=== PATIENT | male | born 1940 | race Caucasian/White ===

== ENCOUNTER 2018-05-08 14:24 | Inpatient (IN) | payer OTHER ==
--- NOTE | 2018-05-08 14:44 | PDOC ---
Attending Attestation - Resident Resident Name: Dean Dial - ED Attending Attestation I have performed the following: I have examined & evaluated the patient, The case was reviewed & discussed with the resident, I agree w/resident's findings & plan, Exceptions are as noted - HPI HPI: 05/08/18 14:49 77 yo male with h/o htn prior tia, here today c/o vertigo. pt states he feels like he is drunk. today while walking out with his family, was noted to be falling to side. so came to ed. no cp no sob. no mod factors. no change to speech. per family pt is not compliant with his medications. - Physicial Exam PE: 05/08/18 15:58 awake alert facies symmetric no nystagmus. lungs clear bilaterally heart rrr no mrg. abd soft nt nd. ext wwp. no edema. no rash. nuero: speech clear. alert oriented x 3 . finger to nose intact. heel to chávez intact. alt hand movement intact. vf intact. CN II - XII intact. gait normal neg romberg. speech clear. pos ulkas hallpike to right. - Medical Decision Making 05/08/18 14:50 differential: cva, bppv, electrolyte abnomrality, htn emergency ich. plan labs ct head, ekg . pt will likely require admission for observation possible mri due to possible cerebellar involvement. 05/08/18 16:00 pt likely peripheral vertigo however due to h/o prior TIA, and longevity of sxs , will admit for MRI. d/w Dr. harrington for consult. NIH Stroke Scale - Initial Evaluation Level of consciousness: Alert Ask patient the month and their age: Answers both correctly Ask patient to open & close eyes; make fist and let go: Obeys both correctly Best gaze (horizontal eye movement): Normal Visual field testing: No visual field loss Facial paresis (Show teeth/raise eyebrows/close eyes tight): Normal symmetrical movement Motor Function: Left Arm: Normal Motor Function: Right Arm: Normal (extends arm 90 (or 45) degrees for 10 seconds without drift Motor Function: Left Leg: Normal (extends leg 30 degrees for 5 seconds without drift) Motor Function: Right Leg: Normal (extends leg 30 degrees for 5 seconds without drift) Limb Ataxia: No ataxia Sensory(Use pinprick test arms,legs,trunk,face/side to side): Normal Best language (Describe picture, name items, read sentences): No Aphasia Dysarthria (read several words): Normal articulation Extinction and Inattention: No abnormality - Total Score NIH Stroke Scale Score: 0
[2018-05-08] MEDS ORDERED: SODIUM CHLORIDE 1,000 ML IV SCH (14:45)
[2018-05-08] MEDS ORDERED: MECLIZINE HCL 25 MG TABLET (FP) PO ONE (14:56)
[2018-05-08 14:57] LABS: BASO % 0.7 % (0-2.0); EOS % 0.9 % (0-4.5); HEMATOCRIT 47.2 % (35.4-49); HEMOGLOBIN 15.8 GM/dL (11.7-16.9); LYMPH % 21.4 % (8-40); MCH 28.9 pg (25.7-33.7); MCHC 33.4 g/dl (32.0-35.9); MEAN CELL VOLUME 86.6 fl (80-96); MEAN PLT VOLUME 8.5 fl (7.5-11.1); MONO % 7.7 % (3.8-10.2); NEUT % 69.3 % (42.8-82.8); PLATELET COUNT 309 K/MM3 (134-434); RBC 5.45 M/mm3 (4.00-5.60); WHITE BLOOD COUNT 10.1 K/mm3 (4.0-10.0)
[2018-05-08 15:09] LABS: INR 1.01 (0.83-1.09); PROTHROMBIN TIME (PATIENT) 11.4 SEC (9.7-13.0)
[2018-05-08 15:19] LABS: ALBUMIN 3.7 g/dl (3.4-5.0); ANION GAP 11 MMOL/L (8-16); BLOOD UREA NITROGEN 31 mg/dL (7-18); CALCIUM 9.3 mg/dL (8.5-10.1); CHLORIDE 102 mmol/L (98-107); CHOLESTEROL 232 mg/dL (50-200); CO2 25 mmol/L (21-32); CREATININE 1.4 mg/dL (0.55-1.3); GLUCOSE,RANDOM 99 mg/dL (74-106); POTASSIUM 4.4 mmol/L (3.5-5.1); SGOT/AST 15 U/L (15-37); SGPT/ALT 29 U/L (13-61); SODIUM 138 mmol/L (136-145)
[2018-05-08 15:21] LABS: ALK PHOS 88 U/L (45-117); BILIRUBIN,TOTAL 0.2 mg/dL (0.2-1.0); HDL CHOLESTEROL 45 mg/dL (40-60); TOT PROT 7.3 g/dl (6.4-8.2); TRIGLYCERIDES 227 mg/dL (0-150)
--- NOTE | 2018-05-08 15:54 | PDOC ---
History of Present Illness - General Chief Complaint: CVA/TIA Stated Complaint: CVT/TIA Time Seen by Provider: 05/08/18 14:38 History Source: Patient, Family Exam Limitations: Language Barrier - History of Present Illness Initial Comments: 05/08/18 15:46 Patient is a 77M with history of TIAx2, HTN, HLD, craniotomy s/p trauma in distant past here today complaining of dizziness for the past three days. Patient reports "feeling drunk in the head" since Friday and falling over to the left side. Patient's family reports catching the patient and became concerned. No facial droop, limb weakness, or slurring was observed. Family endorses poor compliance with medication. Denies fevers, chills, nausea, vomiting. Denies rhinorrhea, ear pain. Denies chest pain and shortness of breath. Denies abdominal pain and dysuria. Symptoms are worsened with movement. Past History - Past Medical History Allergies/Adverse Reactions: Allergies Allergy/AdvReac Type Severity Reaction Status Date / Time No Known Allergies Allergy Verified 05/08/18 14:35 Home Medications: Ambulatory Orders Amlodipine Besylate [Norvasc -] 10 mg PO DAILY 05/08/18 Aspirin/Dipyridamole [Aggrenox -] 1 combo PO BID 05/08/18 Hydralazine HCl 25 mg PO BID 05/08/18 Hydrochlorothiazide [Hctz -] 12.5 mg PO DAILY 05/08/18 Metoprolol Tartrate 37.5 mg PO BID 05/08/18 Valsartan 320 mg PO DAILY 05/08/18 - Suicide/Smoking/Psychosocial Hx Smoking History: Never smoked Review of Systems - Review of Systems Able to Perform ROS?: Yes Comments:: 05/08/18 15:54 GENERAL/CONSTITUTIONAL: No fever or chills. No weakness. HEAD, EYES, EARS, NOSE AND THROAT: No change in vision. No ear pain or discharge. No sore throat. CARDIOVASCULAR: No chest pain or shortness of breath RESPIRATORY: No cough, wheezing, or hemoptysis. GASTROINTESTINAL: No nausea, vomiting, diarrhea or constipation. GENITOURINARY: No dysuria, frequency, or change in urination. MUSCULOSKELETAL: No joint or muscle swelling or pain. No neck or back pain. SKIN: No rash NEUROLOGIC: No headache, +vertigo, no loss of consciousness ENDOCRINE: No increased thirst. No abnormal weight change HEMATOLOGIC/LYMPHATIC: No anemia, easy bleeding, or history of blood clots. ALLERGIC/IMMUNOLOGIC: No hives or skin allergy. *Physical Exam - Vital Signs Last Vital Signs Temp Pulse Resp BP Pulse Ox 97.7 F 71 18 185/92 100 05/08/18 14:25 05/08/18 14:25 05/08/18 14:25 05/08/18 14:25 05/08/18 14:25 - Physical Exam Comments: 05/08/18 15:54 GENERAL: Awake, alert, and fully oriented, in no acute distress HEAD: No signs of trauma, normocephalic, atraumatic EYES: PERRLA, EOMI, sclera anicteric, conjunctiva clear ENT: Auricles normal inspection, hearing grossly normal, nares patent, oropharynx clear without exudates. Moist mucosa NECK: Normal ROM, supple, no lymphadenopathy, JVD, or masses LUNGS: No distress, speaks full sentences, clear to auscultation bilaterally HEART: Regular rate and rhythm, normal S1 and S2, no murmurs, rubs or gallops, peripheral pulses normal and equal bilaterally. ABDOMEN: Soft, nontender, normoactive bowel sounds. No guarding, no rebound. No masses EXTREMITIES: Normal inspection, Normal range of motion, no edema. No clubbing or cyanosis. NEUROLOGICAL: Cranial nerves II through XII grossly intact. Normal speech, no focal sensorimotor deficits, normal cerebellar function SKIN: Warm, Dry, normal turgor, no rashes or lesions noted. NIH Stroke Scale - Last Known Well Date/Time & Onset Date Last Known Well: 05/05/18 Time Last Known Well: 09:00 - Initial Evaluation Level of consciousness: Alert Ask patient the month and their age: Answers both correctly Ask patient to open & close eyes; make fist and let go: Obeys both correctly Best gaze (horizontal eye movement): Normal Visual field testing: No visual field loss Facial paresis (Show teeth/raise eyebrows/close eyes tight): Normal symmetrical movement Motor Function: Left Arm: Normal Motor Function: Right Arm: Normal (extends arm 90 (or 45) degrees for 10 seconds without drift Motor Function: Left Leg: Normal (extends leg 30 degrees for 5 seconds without drift) Motor Function: Right Leg: Normal (extends leg 30 degrees for 5 seconds without drift) Limb Ataxia: No ataxia Sensory(Use pinprick test arms,legs,trunk,face/side to side): Normal Best language (Describe picture, name items, read sentences): No Aphasia Dysarthria (read several words): Normal articulation Extinction and Inattention: No abnormality - Total Score NIH Stroke Scale Score: 0 Critical Care Time/MDM Note - Medical Decision Making Note: 05/08/18 15:56 Patient is 77M with history of craniotomy, HTN, HLD here today complaining of vertigo. Vital signs normal and stable. Code booth called due to last known well initially being just prior to ED visit, further history gained showed last know well [address] head performed, shows s/p r inferior parietal craniotomy with hypoattenuation in the right fronto parietal lobe with no significant associated volume loss. Suggests f/u ct scan or MRI. EKG shows normal sinus rhythm with left axis deviation. T wave inversions in lateral leads. No st elevations/depressions. Normal intervals. Prior EKG in shows no t wave inversions in lateral leads. 05/08/18 18:49 CBC normal. CMP reassuring. UA clear. Dr Andino contacted, suggests ordering MRI w/o contrast. Ordered, admitted for possible stroke. Discharge Disposition - Referrals - Patient Instructions - Post Discharge Activity
[2018-05-08] MEDS ORDERED: MECLIZINE HCL 25 MG TABLET (FP) ONE (16:31)
[2018-05-08 17:09] LABS: URINE APPEARANCE CLEAR; URINE BILIRUBIN NEGATIVE (<2.0 mg/dL); URINE COLOR STRAW; URINE GLUCOSE (UA) NEGATIVE (NEGATIVE); URINE KETONE NEGATIVE (NEGATIVE); URINE LEUK ESTERASE NEGATIVE (NEGATIVE); URINE NITRITE NEGATIVE (NEGATIVE); URINE PROTEIN NEGATIVE (NEGATIVE); URINE UROBILINOGEN NEGATIVE mg/dL (0.2-1.0)
[2018-05-08] MEDS ORDERED: amLODIPine BESYLATE 5 MG TABLET (FP) ONE (18:28)
[2018-05-08] MEDS ORDERED: amLODIPine BESYLATE 5 MG TABLET (FP) PO STA (18:29)
--- NOTE | 2018-05-08 18:37 | HP ---
Admitting History and Physical - Primary Care Physician PCP: Tha Joe (for Dr Montes) - Admission Chief Complaint: unable to walk History of Present Illness: poorly compliant Hypertensive 77 Y-O M with past history of TIAx2, lipidemia who was brought in for unsteady gait, confusion, listlessness. He began feeling ill approx 3 days ago when he developed a generalized headache confusion that he compared to a "drunken state"; howver, on this day, he noted that his gait was impaired in that he could not walk straight and staggering making him umbalanced falling or tilting to his left side. Patient's family reports catching the patient when upright to prevent a fall and became concerned. Slurring was observed. Denies fevers, chills, nausea, vomiting. Denies rhinorrhea, ear pain. Denies chest pain and shortness of breath. Denies abdominal pain and dysuria. His last CVA was approx 10 yrs ago with just tingling of his RUE. 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) Cardiovascular: Yes: HTN, Hyperlipdemia - Past Surgical History Past Surgical History: Yes: Craniotomy - Smoking History Smoking history: Never smoked - Alcohol/Substance Use Hx Alcohol Use: Yes (socially; red wine) Number of Drinks Daily: 1 History of Substance Use: reports: None - Social History Usual Living Arrangement: Yes: With Spouse ADL: Independent History of Recent Travel: No Home Medications - Allergies Allergies/Adverse Reactions: Allergies Allergy/AdvReac Type Severity Reaction Status Date / Time No Known Allergies Allergy Verified 05/08/18 14:35 - Home Medications Home Medications: Ambulatory Orders Amlodipine Besylate [Norvasc -] 10 mg PO DAILY 05/08/18 Aspirin/Dipyridamole [Aggrenox -] 1 combo PO BID 05/08/18 Hydrochlorothiazide [Hctz -] 12.5 mg PO DAILY 05/08/18 RX: Hydralazine HCl 25 mg PO BID 05/08/18 RX: Metoprolol Tartrate 37.5 mg PO BID 05/08/18 RX: Valsartan 320 mg PO DAILY 05/08/18 Family Disease History - Family Disease History Family Disease History: Heart Disease: Mother, Brother Review of Systems - Review of Systems Constitutional: reports: Weakness Eyes: reports: No Symptoms HENT: reports: No Symptoms Neck: reports: No Symptoms Cardiovascular: reports: No Symptoms Respiratory: reports: No Symptoms Gastrointestinal: reports: No Symptoms Genitourinary: reports: No Symptoms Musculoskeletal: reports: No Symptoms Integumentary: reports: No Symptoms Neurological: reports: Change in Speech, Confusion, Dizziness, Headache, Unsteady Gait Endocrine: reports: No Symptoms Hematology/Lymphatic: reports: No Symptoms Psychiatric: reports: Anxiety Physical Examination Vital Signs: Vital Signs Temperature 97.7 F 05/08/18 14:25 Pulse Rate 74 05/08/18 18:09 Respiratory Rate 16 05/08/18 18:09 Blood Pressure 205/96 05/08/18 18:09 O2 Sat by Pulse Oximetry (%) 96 05/08/18 18:09 Constitutional: Yes: Well Nourished, No Distress Eyes: Yes: Conjunctiva Clear, EOM Intact HENT: Yes: WNL Neck: Yes: WNL Cardiovascular: Yes: Regular Rate and Rhythm Respiratory: Yes: WNL Gastrointestinal: Yes: Normal Bowel Sounds, Soft ...Rectal Exam: Yes: Deferred (to PCP) Musculoskeletal: Yes: WNL Extremities: Yes: WNL Edema: No Peripheral Pulses: Left Doralis Pedis: 1+, Right Dorsalis Pedis: 1+ Integumentary: Yes: WNL Neurological: Yes: Alert, Oriented, Facial Droop (Lt side), Unsteady Gait ...Motor Strength: WNL Psychiatric: Yes: WNL Labs: CBC, BMP 05/08/18 14:35 05/08/18 14:35 CBCD WBC 10.1 K/mm3 (4.0-10.0) H 05/08/18 14:35 RBC 5.45 M/mm3 (4.00-5.60) 05/08/18 14:35 Hgb 15.8 GM/dL (11.7-16.9) 05/08/18 14:35 Hct 47.2 % (35.4-49) 05/08/18 14:35 MCV 86.6 fl (80-96) 05/08/18 14:35 MCHC 33.4 g/dl (32.0-35.9) 05/08/18 14:35 RDW 14.0 % (11.9-15.9) 05/08/18 14:35 Plt Count 309 K/MM3 (134-434) 05/08/18 14:35 MPV 8.5 fl (7.5-11.1) 05/08/18 14:35 CMP Sodium 138 mmol/L (136-145) 05/08/18 14:35 Potassium 4.4 mmol/L (3.5-5.1) 05/08/18 14:35 Chloride 102 mmol/L (98-107) 05/08/18 14:35 Carbon Dioxide 25 mmol/L (21-32) 05/08/18 14:35 Anion Gap 11 MMOL/L (8-16) 05/08/18 14:35 BUN 31 mg/dL (7-18) H 05/08/18 14:35 Creatinine 1.4 mg/dL (0.55-1.3) H 05/08/18 14:35 Creat Clearance w eGFR 49.27 (>60) 05/08/18 14:35 Random Glucose 99 mg/dL (74-106) 05/08/18 14:35 Calcium 9.3 mg/dL (8.5-10.1) 05/08/18 14:35 Total Bilirubin 0.2 mg/dL (0.2-1.0) 05/08/18 14:35 AST 15 U/L (15-37) 05/08/18 14:35 ALT 29 U/L (13-61) 05/08/18 14:35 Alkaline Phosphatase 88 U/L (45-117) 05/08/18 14:35 Total Protein 7.3 g/dl (6.4-8.2) 05/08/18 14:35 Albumin 3.7 g/dl (3.4-5.0) 05/08/18 14:35 CARDIAC ENZYMES Creatine Kinase 46 IU/L (26-308) 05/08/18 14:35 Troponin I < 0.02 ng/ml (0.00-0.05) 05/08/18 14:35 Imaging - Results Chest X-ray: Report Reviewed Cat Scan: Report Reviewed EKG: Report Reviewed Problem List - Problems (1) TIA (transient ischemic attack) Assessment/Plan: strongly suspected given physical findings or Lt facial droop; ataxic gait; Rt sided pareses in the face of uncontrolled Htn: PLAN: Neuro eval; MRI; BP control (avoid to fast of a drop) Code(s): G45.9 - TRANSIENT CEREBRAL ISCHEMIC ATTACK, UNSPECIFIED (2) Hypertension with renal disease Assessment/Plan: chronically poorly controlled as evidenced by his meds and history of non compliance. 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 No gross neuro deficits ensued; no Hx seizures Code(s): Z87.820 - PERSONAL HISTORY OF TRAUMATIC BRAIN INJURY (5) History of TIA (transient ischemic attack) Assessment/Plan: the last one was approx 10 yrs ago. No lasting neuro deficits. Code(s): Z86.73 - PRSNL HX OF TIA (TIA), AND CEREB INFRC W/O RESID DEFICITS Assessment/Plan 77 YO with definite stroke/TIA in face of uncontrolled HTN, who will need better control of his BP ~~~~~~~~~~~~~~~~~~~~~ DR Joe
[2018-05-08] MEDS ORDERED: NEBIVOLOL 2.5 MG TABLET (FP) PO ONE (21:00)
[2018-05-08 21:16] VITALS: BMI 26.9
[2018-05-08] MEDS: ALPRAZolam 0.25 MG TABLET PO SCH (21:59)
[2018-05-09 08:22] LABS: ANION GAP 11 MMOL/L (8-16); BLOOD UREA NITROGEN 34 mg/dL (7-18); CALCIUM 9.3 mg/dL (8.5-10.1); CHLORIDE 103 mmol/L (98-107); CO2 27 mmol/L (21-32); GLUCOSE,RANDOM 88 mg/dL (74-106); POTASSIUM 4.9 mmol/L (3.5-5.1); SODIUM 141 mmol/L (136-145)
[2018-05-09 08:34] LABS: CREATININE 1.5 mg/dL (0.55-1.3)
[2018-05-09] MEDS ORDERED: ASPIRIN/DIPYRIDAMOLE 25 MG/200 MG CAPSULE (FP) PO SCH (10:00)
[2018-05-09] MEDS: ALPRAZolam 0.25 MG TABLET PO SCH (10:19)
[2018-05-09] MEDS ORDERED: amLODIPine BESYLATE 5 MG TABLET (FP) PO STA ×2 (10:45→21:20)
--- NOTE | 2018-05-09 11:55 | CONSULT ---
Consult - text type - Consultation Consultation Note: Neurology Chief Complaint: unable to walk History of Present Illness: 77 Y-O M with past history of TIAx2, hyperlipidemia, who was brought in for unsteady gait, confusion, listlessness. He began feeling ill approx 3 days prior to admission when he developed a generalized headache confusion that he compared to a "drunken state"; however, on day of admission, he noted that his gait was impaired in that he could not walk straight and staggering making him unbalanced falling or tilting to his left side. Patient's family reported catching the patient when upright to prevent a fall and became concerned. Slurring was observed. Denied fevers, chills, nausea, vomiting. Denied rhinorrhea, ear pain. Denied chest pain and shortness of breath. Denied abdominal pain and dysuria. His last CVA was approx 10 yrs ago with just tingling of his RUE. CT head completed in ER showed ? encephalomalacia of R inferior parietal region, could not rule out subdural. MRI brain ordered and completed overnight, awaiting official report. Patient does feel better this AM but still unsteady per family at bedside. 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) Cardiovascular: Yes: HTN, Hyperlipdemia - Past Surgical History Past Surgical History: Yes: Craniotomy - Smoking History Smoking history: Never smoked - Alcohol/Substance Use Hx Alcohol Use: Yes (socially; red wine) Number of Drinks Daily: 1 History of Substance Use: reports: None - Social History Usual Living Arrangement: Yes: With Spouse ADL: Independent History of Recent Travel: No Home Medications - Allergies Allergies/Adverse Reactions: Allergies Allergy/AdvReac Type Severity Reaction Status Date / Time No Known Allergies Allergy Verified 05/08/18 14:35 - Home Medications Home Medications: Ambulatory Orders Amlodipine Besylate [Norvasc -] 10 mg PO DAILY 05/08/18 Aspirin/Dipyridamole [Aggrenox -] 1 combo PO BID 05/08/18 Hydrochlorothiazide [Hctz -] 12.5 mg PO DAILY 05/08/18 RX: Hydralazine HCl 25 mg PO BID 05/08/18 RX: Metoprolol Tartrate 37.5 mg PO BID 05/08/18 RX: Valsartan 320 mg PO DAILY 05/08/18 Family Disease History - Family Disease History Family Disease History: Heart Disease: Mother, Brother Review of Systems - Review of Systems Constitutional: reports: Weakness Eyes: reports: No Symptoms HENT: reports: No Symptoms Neck: reports: No Symptoms Cardiovascular: reports: No Symptoms Respiratory: reports: No Symptoms Gastrointestinal: reports: No Symptoms Genitourinary: reports: No Symptoms Musculoskeletal: reports: No Symptoms Integumentary: reports: No Symptoms Neurological: reports: Change in Speech, Confusion, Dizziness, Headache, Unsteady Gait Endocrine: reports: No Symptoms Hematology/Lymphatic: reports: No Symptoms Psychiatric: reports: Anxiety Physical Examination Vital Signs: Vital Signs Period Temp Pulse Resp BP Sys/Bassett Pulse Ox Last 24 Hr 97.7 F-98.1 F 66-74 16-18 106-205/77-96 0-100 Constitutional: Yes: Well Nourished, No Distress Eyes: Yes: Conjunctiva Clear, EOM Intact HENT: Yes: WNL Neck: Yes: WNL Cardiovascular: Yes: Regular Rate and Rhythm Respiratory: Yes: WNL Gastrointestinal: Yes: Normal Bowel Sounds, Soft ...Rectal Exam: Yes: Deferred (to PCP) Musculoskeletal: Yes: WNL Extremities: Yes: WNL Edema: No Peripheral Pulses: Left Doralis Pedis: 1+, Right Dorsalis Pedis: 1+ Integumentary: Yes: WNL Neurological: Awake, alert, interactive, moves all extremities equally, sensory intact, gait deferred ...Motor Strength: WNL Psychiatric: Yes: WNL Labs: 05/08/18 05/08/18 05/08/18 14:35 14:35 14:35 WBC 10.1 H RBC 5.45 Hgb 15.8 Hct 47.2 MCV 86.6 MCHC 33.4 RDW 14.0 Plt Count 309 Neutrophils % 69.3 Lymphocytes % 21.4 Monocytes % 7.7 Eosinophils % 0.9 Basophils % 0.7 INR 1.01 Sodium 138 Potassium 4.4 Chloride 102 Carbon Dioxide 25 Anion Gap 11 BUN 31 H Creatinine 1.4 H Blood Type Antibody Screen 05/08/18 05/08/18 05/09/18 14:35 20:00 05:30 WBC RBC Hgb Hct MCV MCHC RDW Plt Count Neutrophils % Lymphocytes % Monocytes % Eosinophils % Basophils % INR Sodium 141 Potassium 4.9 Chloride 103 Carbon Dioxide 27 Anion Gap 11 BUN 34 H Creatinine 1.5 H Blood Type O POSITIVE O POSITIVE Antibody Screen Negative Imaging - Results Cat Scan: Report Reviewed Plan 77 Y-O M with past history of TIAx2, hyperlipidemia, who was brought in for unsteady gait, confusion, listlessness. He began feeling ill approx 3 days prior to admission when he developed a generalized headache confusion that he compared to a "drunken state"; however, on day of admission, he noted that his gait was impaired in that he could not walk straight and staggering making him unbalanced falling or tilting to his left side. Patient's family reported catching the patient when upright to prevent a fall and became concerned. Slurring was observed. Denied fevers, chills, nausea, vomiting. Denied rhinorrhea, ear pain. Denied chest pain and shortness of breath. Denied abdominal pain and dysuria. His last CVA was approx 10 yrs ago with just tingling of his RUE. CT head completed in ER showed ? encephalomalacia of R inferior parietal region, could not rule out subdural. MRI brain ordered and completed overnight, awaiting official report. Patient does feel better this AM but still unsteady per family at bedside. Continue Aggrenox BID for now, only recently started one week ago. Monitor BP, maintain normotensive range, goal < 140/90. Continue statin for hyperlipidemia. Follow up MRI brain result. PT/OT, assistive device as needed. Consider short term rehab if indicated, fall precautions.
[2018-05-09] MEDS ORDERED: amLODIPine BESYLATE 5 MG TABLET (FP) PO ONE (13:45)
--- NOTE | 2018-05-09 16:17 | PN ---
Progress Note (short form) - Note Progress Note: Current Medications Amlodipine Besylate (Norvasc -) 10 mg PO DAILY ROSIE Atenolol (Tenormin -) 25 mg PO DAILY ROSIE Dipyridamole/Aspirin (Aggrenox -) 1 combo PO BID ROSIE Mirtazapine (Remeron -) 15 mg PO HS ROSIE Rosuvastatin Calcium (Crestor -) 10 mg PO HS ROSIE Laboratory Results - last 24 hr 05/08/18 05/08/18 05/08/18 14:35 17:00 20:00 Sodium Potassium Chloride Carbon Dioxide Anion Gap BUN Creatinine Creat Clearance w eGFR Random Glucose Calcium Creatine Kinase Troponin I TSH Free T4 Urine Color Straw Urine Appearance Clear Urine pH 6.0 Ur Specific [place] 1.008 Urine Protein Negative Urine Glucose (UA) Negative Urine Ketones Negative Urine Blood Negative Urine Nitrite Negative Urine Bilirubin Negative Urine Urobilinogen Negative Ur Leukocyte Esterase Negative Blood Type O POSITIVE O POSITIVE Antibody Screen Negative 05/09/18 05/09/18 05:30 08:45 Sodium 141 Potassium 4.9 Chloride 103 Carbon Dioxide 27 Anion Gap 11 BUN 34 H Creatinine 1.5 H Creat Clearance w eGFR 45.50 Random Glucose 88 Calcium 9.3 Creatine Kinase 40 Troponin I < 0.02 TSH 4.75 H Free T4 0.97 Cancelled Urine Color Urine Appearance Urine pH Ur Specific [place] Urine Protein Urine Glucose (UA) Urine Ketones Urine Blood Urine Nitrite Urine Bilirubin Urine Urobilinogen Ur Leukocyte Esterase Blood Type Antibody Screen Vital Signs Period Temp Pulse Resp BP Sys/Bassett Pulse Ox Last 24 Hr 97.8 F-98.1 F 66-79 16-20 106-205/77-99 96-98 CC: feels better more steady on his feet; wishes to have something for sleep ````````````````````````````````````` skin--good color eyes--midline oral--no droop evident lungs--clear heart--RR 2/6 M abd--benign neuro--ambulates on his own; gait a bit ataxic; sways to his right; no gross motor deficits appreciated `````````````````````````````````````````````` Summ > TIA/CVA--await MRI report; Neuro note read; resume aggrenoxx; and resume BP control. PLAN: carotid duplex/echo to be done > Htn--with renal insuff; probably 2nd medical renal dz; PLAN; cont with BB and CCB for now > abnL EKG--lateral wall T wave inversions; Trop x 2 are WNL; without SX of CP; no other tracing available for comparison; await Echo. Will need cardio eval > lipidemia--on crestor > anxiety--yobani Rx Mirtazapine ~~~~~~~~~~~~~~~~~~~~ dr Joe Problem List - Problems (1) TIA (transient ischemic attack) Code(s): G45.9 - TRANSIENT CEREBRAL ISCHEMIC ATTACK, UNSPECIFIED (2) Hypertension with renal disease Code(s): I12.9 - HYPERTENSIVE CHRONIC KIDNEY DISEASE W STG 1-4/UNSP CHR KDNY (3) Lipid disorder Code(s): E78.9 - DISORDER OF LIPOPROTEIN METABOLISM, UNSPECIFIED (4) Hx of traumatic brain injury Code(s): Z87.820 - PERSONAL HISTORY OF TRAUMATIC BRAIN INJURY (5) History of TIA (transient ischemic attack) Code(s): Z86.73 - PRSNL HX OF TIA (TIA), AND CEREB INFRC W/O RESID DEFICITS
[2018-05-09] MEDS: ATENOLOL 25 MG TABLET (FP) PO SCH (18:01)
[2018-05-09] MEDS: ASPIRIN/DIPYRIDAMOLE 25 MG/200 MG CAPSULE (FP) PO SCH (21:39)
[2018-05-09] MEDS: ROSUVASTATIN CA 10 MG TABLET (FP) PO SCH (21:39)
[2018-05-09] MEDS: MIRTAZAPINE 15 MG TABLET (FP) PO SCH (21:39)
[2018-05-09] MEDS ORDERED: ATENOLOL 25 MG TABLET (FP) PO SCH (22:00)
[2018-05-09] MEDS ORDERED: ZOLPIDEM TARTRATE 5 MG TABLET PO ONE (22:00)
[2018-05-10 08:34] LABS: CHLORIDE 105 mmol/L (98-107); SODIUM 141 mmol/L (136-145)
[2018-05-10 08:44] LABS: ANION GAP 8 MMOL/L (8-16); BLOOD UREA NITROGEN 38 mg/dL (7-18); CALCIUM 9.3 mg/dL (8.5-10.1); CO2 28 mmol/L (21-32); CREATININE 1.4 mg/dL (0.55-1.3); GLUCOSE,RANDOM 100 mg/dL (74-106); MAGNESIUM 2.2 mg/dL (1.8-2.4)
[2018-05-10] MEDS: ASPIRIN/DIPYRIDAMOLE 25 MG/200 MG CAPSULE (FP) PO SCH ×2 (09:37→21:07)
[2018-05-10] MEDS: ATENOLOL 25 MG TABLET (FP) PO SCH (09:38)
[2018-05-10] MEDS ORDERED: amLODIPine BESYLATE 10 MG TABLET (FP) PO SCH (10:00)
[2018-05-10] MEDS ORDERED: amLODIPine BESYLATE 5 MG TABLET (FP) PO SCH (10:00)
[2018-05-10] MEDS ORDERED: NIFEdipine E.R 60 MG TABLET (UD) PO SCH (10:00)
--- NOTE | 2018-05-10 11:49 | PN ---
Progress Note (short form) - Note Progress Note: Neurology History of Present Illness: 77 Y-O M with past history of TIAx2, hyperlipidemia, who was brought in for unsteady gait, confusion, listlessness. He began feeling ill approx 3 days prior to admission when he developed a generalized headache confusion that he compared to a "drunken state"; however, on day of admission, he noted that his gait was impaired in that he could not walk straight and staggering making him unbalanced falling or tilting to his left side. Patient's family reported catching the patient when upright to prevent a fall and became concerned. Slurring was observed. Denied fevers, chills, nausea, vomiting. Denied rhinorrhea, ear pain. Denied chest pain and shortness of breath. Denied abdominal pain and dysuria. His last CVA was approx 10 yrs ago with just tingling of his RUE. CT head completed in ER showed ? encephalomalacia of R inferior parietal region, could not rule out subdural. MRI brain ordered and completed but awaiting official report. Patient does feel better, has been getting medical optimization. Active Medications Atenolol (Tenormin -) 25 mg PO DAILY [facility] Last Admin: 05/10/18 09:38 Dose: 25 mg Dipyridamole/Aspirin (Aggrenox -) 1 combo PO BID [facility] Last Admin: 05/10/18 09:37 Dose: 1 combo Mirtazapine (Remeron -) 15 mg PO [facility] Last Admin: 05/09/18 21:39 Dose: 15 mg Nifedipine (Procardia Xl -) 60 mg PO DAILY [facility] Last Admin: 05/10/18 09:38 Dose: 60 mg Rosuvastatin Calcium (Crestor -) 10 mg PO [facility] Last Admin: 05/09/18 21:39 Dose: 10 mg Physical Examination Vital Signs Period Temp Pulse Resp BP Sys/Bassett Pulse Ox Last 24 Hr 97.8 F-98.8 F 67-80 18-20 141-197/73-99 95-96 Constitutional: Yes: Well Nourished, No Distress Eyes: Yes: Conjunctiva Clear, EOM Intact HENT: Yes: WNL Neck: Yes: WNL Cardiovascular: Yes: Regular Rate and Rhythm Respiratory: Yes: WNL Gastrointestinal: Yes: Normal Bowel Sounds, Soft ...Rectal Exam: Yes: Deferred (to PCP) Musculoskeletal: Yes: WNL Extremities: Yes: WNL Edema: No Peripheral Pulses: Left Doralis Pedis: 1+, Right Dorsalis Pedis: 1+ Integumentary: Yes: WNL Neurological: Awake, alert, interactive, moves all extremities equally, sensory intact, gait deferred CBCD WBC 10.1 K/mm3 (4.0-10.0) H 05/08/18 14:35 RBC 5.45 M/mm3 (4.00-5.60) 05/08/18 14:35 Hgb 15.8 GM/dL (11.7-16.9) 05/08/18 14:35 Hct 47.2 % (35.4-49) 05/08/18 14:35 MCV 86.6 fl (80-96) 05/08/18 14:35 MCHC 33.4 g/dl (32.0-35.9) 05/08/18 14:35 RDW 14.0 % (11.9-15.9) 05/08/18 14:35 Plt Count 309 K/MM3 (134-434) 05/08/18 14:35 MPV 8.5 fl (7.5-11.1) 05/08/18 14:35 CMP Sodium 141 mmol/L (136-145) 05/10/18 05:30 Potassium 5.0 mmol/L (3.5-5.1) 05/10/18 05:30 Chloride 105 mmol/L (98-107) 05/10/18 05:30 Carbon Dioxide 28 mmol/L (21-32) 05/10/18 05:30 Anion Gap 8 MMOL/L (8-16) 05/10/18 05:30 BUN 38 mg/dL (7-18) H 05/10/18 05:30 Creatinine 1.4 mg/dL (0.55-1.3) H 05/10/18 05:30 Creat Clearance w eGFR 49.27 (>60) 05/10/18 05:30 Random Glucose 100 mg/dL (74-106) 05/10/18 05:30 Calcium 9.3 mg/dL (8.5-10.1) 05/10/18 05:30 Total Bilirubin 0.2 mg/dL (0.2-1.0) 05/08/18 14:35 AST 15 U/L (15-37) 05/08/18 14:35 ALT 29 U/L (13-61) 05/08/18 14:35 Alkaline Phosphatase 88 U/L (45-117) 05/08/18 14:35 Total Protein 7.3 g/dl (6.4-8.2) 05/08/18 14:35 Albumin 3.7 g/dl (3.4-5.0) 05/08/18 14:35 CARDIAC ENZYMES Creatine Kinase 40 IU/L (26-308) 05/09/18 05:30 Troponin I < 0.02 ng/ml (0.00-0.05) 05/09/18 05:30 Imaging - Results Cat Scan: Report Reviewed Plan 77 Y-O M with past history of TIAx2, hyperlipidemia, who was brought in for unsteady gait, confusion, listlessness. He began feeling ill approx 3 days prior to admission when he developed a generalized headache confusion that he compared to a "drunken state"; however, on day of admission, he noted that his gait was impaired in that he could not walk straight and staggering making him unbalanced falling or tilting to his left side. Patient's family reported catching the patient when upright to prevent a fall and became concerned. Slurring was observed. Denied fevers, chills, nausea, vomiting. Denied rhinorrhea, ear pain. Denied chest pain and shortness of breath. Denied abdominal pain and dysuria. His last CVA was approx 10 yrs ago with just tingling of his RUE. CT head completed in ER showed ? encephalomalacia of R inferior parietal region, could not rule out subdural. MRI brain and completed overnight, awaiting official report, discussed with nurse to have it read. Patient does feel better this AM but still unsteady per family at bedside. Continue Aggrenox BID for now, only recently started one week ago. Monitor BP, maintain normotensive range, goal < 140/90. Continue statin for hyperlipidemia. Follow up MRI brain result. PT/OT, assistive device as needed. Consider short term rehab if indicated, fall precautions.
--- NOTE | 2018-05-10 15:02 | PN ---
Progress Note (short form) - Note Progress Note: Current Medications Atenolol (Tenormin -) 25 mg PO DAILY [facility] Last Admin: 05/10/18 09:38 Dose: 25 mg Dipyridamole/Aspirin (Aggrenox -) 1 combo PO BID [facility] Last Admin: 05/10/18 09:37 Dose: 1 combo Meclizine HCl (Antivert -) 12.5 mg PO BID [facility] Mirtazapine (Remeron -) 15 mg PO HS [facility] Last Admin: 05/09/18 21:39 Dose: 15 mg Nifedipine (Procardia Xl -) 60 mg PO DAILY [facility] Last Admin: 05/10/18 09:38 Dose: 60 mg Rosuvastatin Calcium (Crestor -) 10 mg PO HS [facility] Last Admin: 05/09/18 21:39 Dose: 10 mg Laboratory Results - last 24 hr 05/10/18 05:30 Sodium 141 Potassium 5.0 Chloride 105 Carbon Dioxide 28 Anion Gap 8 BUN 38 H Creatinine 1.4 H Creat Clearance w eGFR 49.27 Random Glucose 100 Calcium 9.3 Magnesium 2.2 Vital Signs Temperature 97.8 F 05/10/18 13:55 Pulse Rate 63 05/10/18 13:55 Respiratory Rate 18 05/10/18 13:55 Blood Pressure 129/70 05/10/18 13:55 O2 Sat by Pulse Oximetry (%) 95 05/10/18 09:00 CC: walking better but still feels dizzy ? (Rotational) ````````````````````````````````````` skin--good color eyes--midline oral--no droop evident lungs--clear heart--RR 2/6 M abd--benign neuro--ambulates on his own; gait now straight; no gross motor deficits appreciated `````````````````````````````````````````````` Summ > TIA/CVA--neurologically improved; cont BP control & Agrenoxx; MRI unoffically negative; carotid Duplex with some plaque but no signif narrowing. > dizziness--described a rotational component; which was present on arrival to ER and responded to meclizine. ALESIA: low dose meclizine > Htn--BP seems to be better; PLAN; started on Nifedipine ER; and BB; Echo pending > renal insuff--will do renal US > abnL EKG--lateral wall T wave inversions; Trop x 2 are WNL; without SX of CP; no other tracing available for comparison; await Echo. Will need cardio eval > lipidemia--on crestor > anxiety-on mirtazapine ~~~~~~~~~~~~~~~~~~~~ dr Joe Problem List - Problems (1) TIA (transient ischemic attack) Code(s): G45.9 - TRANSIENT CEREBRAL ISCHEMIC ATTACK, UNSPECIFIED (2) Hypertension with renal disease Code(s): I12.9 - HYPERTENSIVE CHRONIC KIDNEY DISEASE W STG 1-4/UNSP CHR KDNY (3) Lipid disorder Code(s): E78.9 - DISORDER OF LIPOPROTEIN METABOLISM, UNSPECIFIED (4) Hx of traumatic brain injury Code(s): Z87.820 - PERSONAL HISTORY OF TRAUMATIC BRAIN INJURY (5) History of TIA (transient ischemic attack) Code(s): Z86.73 - PRSNL HX OF TIA (TIA), AND CEREB INFRC W/O RESID DEFICITS
[2018-05-10] MEDS: ROSUVASTATIN CA 10 MG TABLET (FP) PO SCH (21:07)
[2018-05-10] MEDS: MECLIZINE HCL 12.5 MG TABLET PO SCH (21:08)
[2018-05-10] MEDS: MIRTAZAPINE 15 MG TABLET (FP) PO SCH (21:08)
--- NOTE | 2018-05-10 21:38 | EKG ---
Test Reason : Blood Pressure : / mmHG Vent. Rate : 074 BPM Atrial Rate : 074 BPM P-R Int : 180 ms QRS Dur : 110 ms QT Int : 404 ms P-R-T Axes : 043 -29 226 degrees QTc Int : 448 ms NORMAL SINUS RHYTHM POSSIBLE LEFT ATRIAL ENLARGEMENT LEFT VENTRICULAR HYPERTROPHY T WAVE ABNORMALITY, CONSIDER LATERAL ISCHEMIA ABNORMAL ECG WHEN COMPARED WITH ECG OF 08-MAY-2018 14:31, PREMATURE SUPRAVENTRICULAR COMPLEXES ARE NO LONGER PRESENT Confirmed by EVETTE SANTIAGO MD ([id number]) on 05/10/2018 9:37:51 PM Referred By: Finesse DUARTE Confirmed By:EVETTE SANTIAGO MD
--- NOTE | 2018-05-10 22:00 | EKG ---
Test Reason : Blood Pressure : / mmHG Vent. Rate : 073 BPM Atrial Rate : 073 BPM P-R Int : 184 ms QRS Dur : 106 ms QT Int : 392 ms P-R-T Axes : 044 -44 129 degrees QTc Int : 431 ms SINUS RHYTHM WITH PREMATURE SUPRAVENTRICULAR COMPLEXES POSSIBLE LEFT ATRIAL ENLARGEMENT LEFT AXIS DEVIATION LEFT VENTRICULAR HYPERTROPHY T WAVE ABNORMALITY, CONSIDER LATERAL ISCHEMIA ABNORMAL ECG NO PREVIOUS ECGS AVAILABLE Confirmed by EVETTE SANTIAGO MD ([id number]) on 05/10/2018 9:59:52 PM Referred By: Confirmed By:EVETTE SANTIAGO MD
[2018-05-11 06:51] LABS: ANION GAP 10 MMOL/L (8-16); BLOOD UREA NITROGEN 39 mg/dL (7-18); CALCIUM 9.1 mg/dL (8.5-10.1); CHLORIDE 106 mmol/L (98-107); CO2 27 mmol/L (21-32); CREATININE 1.4 mg/dL (0.55-1.3); GLUCOSE,RANDOM 96 mg/dL (74-106); POTASSIUM 4.9 mmol/L (3.5-5.1); SODIUM 143 mmol/L (136-145)
[2018-05-11] MEDS: NIFEdipine E.R. 90 MG TABLET (FP) PO SCH (09:11)
[2018-05-11] MEDS: ASPIRIN/DIPYRIDAMOLE 25 MG/200 MG CAPSULE (FP) PO SCH ×2 (09:11→21:16)
[2018-05-11] MEDS: ATENOLOL 25 MG TABLET (FP) PO SCH (09:11)
[2018-05-11] MEDS: MECLIZINE HCL 12.5 MG TABLET PO SCH ×2 (09:11→21:16)
--- NOTE | 2018-05-11 09:35 | CON.CARD ---
Cardiology Consult (text) - Consultation Consultation Note: IMP: Multiple prior TIAs, prior CVA Acute dizziness/ vertigo with MRI negative for acute CVA Abnl ECG: LVH diffuse NSST changes and TWI REC: 1. Telemetry thus far is negative for arrhythmias to explain sx 2. Echo today for EF assessment 3. 3rd Cardiac enzyme 4. Optimization of BP, lipid goals. 5. MRI is negative for acute stroke, thus sx may be secondary to vertigo. Neuro following. A stress MPI would be helpful to r/o chronic underlying ischemia given the ECG but would hold off until neurological symptoms are resolved. If EF normal and enzymes negative, this can be done either prior to discharge or as outpatient w/ close f/u.
--- NOTE | 2018-05-11 09:40 | PN ---
Progress Note (short form) - Note Progress Note: Neurology History of Present Illness: 77 Y-O M with past history of TIAx2, hyperlipidemia, who was brought in for unsteady gait, confusion, listlessness. He began feeling ill approx 3 days prior to admission when he developed a generalized headache confusion that he compared to a "drunken state"; however, on day of admission, he noted that his gait was impaired in that he could not walk straight and staggering making him unbalanced falling or tilting to his left side. Patient's family reported catching the patient when upright to prevent a fall and became concerned. Slurring was observed. Denied fevers, chills, nausea, vomiting. Denied rhinorrhea, ear pain. Denied chest pain and shortness of breath. Denied abdominal pain and dysuria. His last CVA was approx 10 yrs ago with just tingling of his RUE. CT head completed in ER showed ? encephalomalacia of R inferior parietal region, could not rule out subdural. MRI brain ordered and completed but awaiting official report. Informed by nurse yesterday or prelim report being without acute changes. Discussed with nurse this AM, no family at bedside. Active Medications Atenolol (Tenormin -) 25 mg PO DAILY [facility] Last Admin: 05/11/18 09:11 Dose: 25 mg Dipyridamole/Aspirin (Aggrenox -) 1 combo PO BID [facility] Last Admin: 05/11/18 09:11 Dose: 1 combo Meclizine HCl (Antivert -) 12.5 mg PO BID [facility] Last Admin: 05/11/18 09:11 Dose: 12.5 mg Mirtazapine (Remeron -) 15 mg PO [facility] Last Admin: 05/10/18 21:08 Dose: 15 mg Nifedipine (Procardia Xl -) 90 mg PO DAILY [facility] Last Admin: 05/11/18 09:11 Dose: 90 mg Rosuvastatin Calcium (Crestor -) 10 mg PO [facility] Last Admin: 05/10/18 21:07 Dose: 10 mg Physical Examination Vital Signs Temperature 98.2 F 05/11/18 05:25 Pulse Rate 70 05/11/18 05:25 Respiratory Rate 20 05/11/18 05:25 Blood Pressure 157/75 05/11/18 05:25 O2 Sat by Pulse Oximetry (%) 96 05/10/18 20:21 Constitutional: Yes: Well Nourished, No Distress Eyes: Yes: Conjunctiva Clear, EOM Intact HENT: Yes: WNL Neck: Yes: WNL Cardiovascular: Yes: Regular Rate and Rhythm Respiratory: Yes: WNL Gastrointestinal: Yes: Normal Bowel Sounds, Soft ...Rectal Exam: Yes: Deferred (to PCP) Musculoskeletal: Yes: WNL Extremities: Yes: WNL Edema: No Peripheral Pulses: Left Doralis Pedis: 1+, Right Dorsalis Pedis: 1+ Integumentary: Yes: WNL Neurological: Awake, alert, interactive, moves all extremities equally, sensory intact, gait deferred CBCD WBC 10.1 K/mm3 (4.0-10.0) H 05/08/18 14:35 RBC 5.45 M/mm3 (4.00-5.60) 05/08/18 14:35 Hgb 15.8 GM/dL (11.7-16.9) 05/08/18 14:35 Hct 47.2 % (35.4-49) 05/08/18 14:35 MCV 86.6 fl (80-96) 05/08/18 14:35 MCHC 33.4 g/dl (32.0-35.9) 05/08/18 14:35 RDW 14.0 % (11.9-15.9) 05/08/18 14:35 Plt Count 309 K/MM3 (134-434) 05/08/18 14:35 MPV 8.5 fl (7.5-11.1) 05/08/18 14:35 CMP Sodium 143 mmol/L (136-145) 05/11/18 05:30 Potassium 4.9 mmol/L (3.5-5.1) 05/11/18 05:30 Chloride 106 mmol/L (98-107) 05/11/18 05:30 Carbon Dioxide 27 mmol/L (21-32) 05/11/18 05:30 Anion Gap 10 MMOL/L (8-16) 05/11/18 05:30 BUN 39 mg/dL (7-18) H 05/11/18 05:30 Creatinine 1.4 mg/dL (0.55-1.3) H 05/11/18 05:30 Creat Clearance w eGFR 49.27 (>60) 05/11/18 05:30 Random Glucose 96 mg/dL (74-106) 05/11/18 05:30 Calcium 9.1 mg/dL (8.5-10.1) 05/11/18 05:30 Total Bilirubin 0.2 mg/dL (0.2-1.0) 05/08/18 14:35 AST 15 U/L (15-37) 05/08/18 14:35 ALT 29 U/L (13-61) 05/08/18 14:35 Alkaline Phosphatase 88 U/L (45-117) 05/08/18 14:35 Total Protein 7.3 g/dl (6.4-8.2) 05/08/18 14:35 Albumin 3.7 g/dl (3.4-5.0) 05/08/18 14:35 CARDIAC ENZYMES Creatine Kinase 40 IU/L (26-308) 05/09/18 05:30 Troponin I < 0.02 ng/ml (0.00-0.05) 05/09/18 05:30 Imaging - Results Cat Scan: Report Reviewed Plan 77 Y-O M with past history of TIAx2, hyperlipidemia, who was brought in for unsteady gait, confusion, listlessness. He began feeling ill approx 3 days prior to admission when he developed a generalized headache confusion that he compared to a "drunken state"; however, on day of admission, he noted that his gait was impaired in that he could not walk straight and staggering making him unbalanced falling or tilting to his left side. Patient's family reported catching the patient when upright to prevent a fall and became concerned. Slurring was observed. Denied fevers, chills, nausea, vomiting. Denied rhinorrhea, ear pain. Denied chest pain and shortness of breath. Denied abdominal pain and dysuria. His last CVA was approx 10 yrs ago with just tingling of his RUE. CT head completed in ER showed ? encephalomalacia of R inferior parietal region, could not rule out subdural. MRI brain completed, awaiting official report, prelim read negative. Patient does feel better. Continue Aggrenox BID for now, only recently started one week ago. Monitor BP, maintain normotensive range, goal < 140/90. Continue statin for hyperlipidemia. PT/OT, assistive device as needed. Consider short term rehab if indicated, fall precautions. Fall precautions, DVT ppx.
--- NOTE | 2018-05-11 11:46 | PN ---
Progress Note (short form) - Note Progress Note: Current Medications Atenolol (Tenormin -) 25 mg PO DAILY [facility] Last Admin: 05/11/18 09:11 Dose: 25 mg Dipyridamole/Aspirin (Aggrenox -) 1 combo PO BID [facility] Last Admin: 05/11/18 09:11 Dose: 1 combo Meclizine HCl (Antivert -) 12.5 mg PO BID [facility] Last Admin: 05/11/18 09:11 Dose: 12.5 mg Mirtazapine (Remeron -) 15 mg PO [facility] Last Admin: 05/10/18 21:08 Dose: 15 mg Nifedipine (Procardia Xl -) 90 mg PO DAILY [facility] Last Admin: 05/11/18 09:11 Dose: 90 mg Rosuvastatin Calcium (Crestor -) 10 mg PO [facility] Last Admin: 05/10/18 21:07 Dose: 10 mg Laboratory Results - last 24 hr 05/11/18 05:30 Sodium 143 Potassium 4.9 Chloride 106 Carbon Dioxide 27 Anion Gap 10 BUN 39 H Creatinine 1.4 H Creat Clearance w eGFR 49.27 Random Glucose 96 Calcium 9.1 Vital Signs Period Temp Pulse Resp BP Sys/Bassett Pulse Ox Last 24 Hr 97.4 F-98.2 F 63-75 18-20 129-166/68-87 96-97 CC: less dizzy today ````````````````````````````````````` skin--good color eyes--midline oral--no droop evident lungs--clear heart--RR 2/6 M abd--benign neuro--ambulates on his own; gait now straight; speech clear, no gross motor deficits appreciated `````````````````````````````````````````````` Summ > TIA/CVA--neurologically improved; cont BP control & Agrenoxx; MRI negative; carotid Duplex with some plaque but no signif narrowing. > dizziness--seems to be better with low dose meclizine > Htn--BP seems to be better; PLAN; up dose of Nifedipine today; Echo pending > renal insuff--US unremarkable > abnL EKG--lateral wall T wave inversions; Trop are WNL; without SX of CP; his OP EKG showed no lateral wall T wave inversions; may need Stress testing. > lipidemia--on crestor > anxiety-on mirtazapine ~~~~~~~~~~~~~~~~~~~~ dr Joe Problem List - Problems (1) TIA (transient ischemic attack) Code(s): G45.9 - TRANSIENT CEREBRAL ISCHEMIC ATTACK, UNSPECIFIED (2) Hypertension with renal disease Code(s): I12.9 - HYPERTENSIVE CHRONIC KIDNEY DISEASE W STG 1-4/UNSP CHR KDNY (3) Lipid disorder Code(s): E78.9 - DISORDER OF LIPOPROTEIN METABOLISM, UNSPECIFIED (4) Hx of traumatic brain injury Code(s): Z87.820 - PERSONAL HISTORY OF TRAUMATIC BRAIN INJURY (5) History of TIA (transient ischemic attack) Code(s): Z86.73 - PRSNL HX OF TIA (TIA), AND CEREB INFRC W/O RESID DEFICITS
--- NOTE | 2018-05-11 12:30 | ECHO ---
Name: PAKO JOHANSEN Exam:Adult Echocardiogram Study Date: 05/11/2018 09:22 AM Age: 77 yrs Reason For Study: HIGH BP Height: 63 in Weight: 145 lb BSA: 1.7 m2 MMode/2D Measurements & Calculations IVSd: 1.3 cm Ao root diam: 2.8 cm LVIDd: 3.7 cm LA dimension: 2.7 cm LVIDs: 2.5 cm LVPWd: 1.1 cm EDV(Teich): 57.3 ml LVOT diam: 2.0 cm ESV(Teich): 23.2 ml Doppler Measurements & Calculations MV E max luis: 88.8 cm/sec Ao V2 max: 260.6 cm/sec MV A max luis: 108.7 cm/sec Ao max P.2 mmHg MV E/A: 0.82 Ao V2 mean: 169.9 cm/sec MV dec time: 0.18 sec Ao mean P.1 mmHg Ao V2 VTI: 44.2 cm CEDRIC(I,D): 0.88 cm2 CEDRIC(V,D): 1.00 cm2 LV V1 max P.8 mmHg SV(LVOT): 38.7 ml LV V1 mean P.3 mmHg LV V1 max: 83.7 cm/sec LV V1 mean: 51.6 cm/sec LV V1 VTI: 12.5 cm PI Vmax: 119.4 cm/sec Procedure A complete two-dimensional transthoracic echocardiogram was performed (2D, M-mode, Doppler and color flow Doppler). Left Ventricle The left ventricle is normal in size. There is mild concentric left ventricular hypertrophy. Left daysi tricular systolic function is normal. Ejection Fraction = 60-65%. E/A reversal consistent with but not diagnos tic of poor LV compliance. No regional wall motion abnormalities noted. Right Ventricle The right ventricle is normal size. The right ventricular systolic function is normal. Atria The left atrial size is normal. Right atrial size is normal. Mitral Valve There is mild mitral annular calcification. There is no mitral regurgitation noted. Tricuspid Valve The tricuspid valve is normal in structure and function. There is mild tricuspid regurgitation. Aortic Valve There is mild aortic valve thickening. Mild valvular aortic stenosis. The calculated aortic valve are a using the continuity equation is 1.0 cm2. Aortic mean pressure gradient= 14 mmHg. DI (dimentionless index) is 0.29. No aortic regurgitation is present. Pulmonic Valve The pulmonic valve is not well visualized. Mild pulmonic valvular regurgitation. Great Vessels The aortic root is normal size. Pericardium/Pleura There is no pericardial effusion. Interpretation Summary The left ventricle is normal in size. There is mild concentric left ventricular hypertrophy. Left ventricular systolic function is normal. No regional wall motion abnormalities noted. Ejection Fraction = 60-65%. E/A reversal consistent with but not diagnostic of poor LV compliance The right ventricular systolic function is normal. The left atrial size is normal. Right atrial size is normal. There is mild mitral annular calcification. There is mild tricuspid regurgitation. There is mild aortic valve thickening. Mild valvular aortic stenosis. The calculated aortic valve area using the continuity equation is 1.0 cm2. Aortic mean pressure gradient= 14 mmHg DI (dimentionless index) is 0.29 Mild pulmonic valvular regurgitation. There is no pericardial effusion. Perry Giron MD 05/11/2018 12:29 PM
--- NOTE | 2018-05-11 12:41 | CONS ---
DATE OF CONSULTATION: 05/11/2018 REQUESTING PHYSICIAN: Tha Joe MD REASON FOR CONSULTATION: Abnormal EKG. HISTORY: The patient is a 77-year-old male with hypertension and multiple previous TIAs who presented to the emergency room on May 08 with dizziness. The patient described the room spinning, acute dizziness. He denied chest pain, shortness of breath, palpitations, PND, orthopnea. He denies any exertional chest symptoms. He had an initial head CT scan, which was equivocal followed by a brain MRI performed on May 08. The brain MRI showed no acute stroke but findings consistent with his previous chronic infarct. He subsequently had a carotid ultrasound on May 09 showing moderate disease that was not significantly obstructed. He was seen by Neurology who is currently reviewing his MRI. I was asked to see him for an abnormal ECG, which showed normal sinus rhythm with left ventricular hypertrophy, possible left atrial enlargement, and T-wave inversions in 1, aVL as well as V4-V6, which have been unchanged between May 08 and May 09. There is no previous comparison. The patient denies history of previous myocardial infarction or coronary interventions. PAST MEDICAL HISTORY: As above and also includes hyperlipidemia. ALLERGIES: No known drug allergies. MEDICATIONS: Include atenolol 25 mg p.o. daily, Aggrenox 1 tablet b.i.d., meclizine 12.5 mg b.i.d., Remeron 15 mg nightly, nifedipine XL 90 mg p.o. daily. As an outpatient, he had been on amlodipine 10 mg p.o. daily. This was switched on this admission due to uncontrolled hypertension. He is also on rosuvastatin 10 mg p.o. daily. FAMILY HISTORY: Noncontributory. SOCIAL HISTORY: Occasional drinker of wine, social drinker. No illegal drugs or tobacco. PHYSICAL EXAMINATION: General: Comfortable in no distress. Vital Signs: Afebrile. Temperature 98.2, blood pressure 157/75, on admission 185/92, much improved, O2 saturation 96% on room air. HEENT: He is anicteric. Neck: Has 2+ carotid pulses without bruits. Heart: S1, S2 regular. No murmurs. Chest: Clear. Abdomen: Soft and nontender. Extremities: No edema. CT and MRI are as noted in the HPI. White count 10.1, hematocrit 47.2, platelets 309, INR 1.01. Sodium 143, potassium 4.9, BUN 39, creatinine 1.4. CK and troponin are negative x2 sets. TSH 4.75, LDL 172. Urinalysis was negative. Lyme screen is pending. Chest x-ray: No acute process. Echocardiogram is pending. IMPRESSION: 1. Multiple previous transient ischemic attacks, prior cerebrovascular accident. 2. Acute dizziness with vertigo. MRI negative for acute cerebrovascular accident. 3. Abnormal echocardiogram. Left ventricular hypertrophy with diffuse, nonspecific ST changes and T-wave inversions. RECOMMENDATIONS: 1. Telemetry thus far is negative for arrhythmias to explain his symptoms. 2. An echocardiogram will be obtained today for EF assessment. 3. Obtain 3rd cardiac enzymes. 4. Optimization of blood pressure and lipid goals. He has been switched from amlodipine to Procardia XL and also placed on a moderate dose of rosuvastatin for LDL control. 5. MRI is negative for acute strokes. Thus, symptoms may be secondary to vertigo. Neurology is following. 6. Nuclear stress test would be helpful to rule out chronic underlying ischemia in this patient with multiple risk factors and abnormal ECG. However, he is currently asymptomatic and would hold off until the neurological symptoms are resolved. If the ejection fraction and the enzymes are negative, this can be done either prior to discharge or as an outpatient with close follow up. We will follow. CARRILLO HUNT M.D. [id number]
[2018-05-11] MEDS: MIRTAZAPINE 15 MG TABLET (FP) PO SCH (21:16)
[2018-05-11] MEDS: ROSUVASTATIN CA 10 MG TABLET (FP) PO SCH (21:16)
[2018-05-12 06:43] LABS: ANION GAP 10 MMOL/L (8-16); BLOOD UREA NITROGEN 35 mg/dL (7-18); CHLORIDE 107 mmol/L (98-107); CO2 25 mmol/L (21-32); GLUCOSE,RANDOM 97 mg/dL (74-106); POTASSIUM 4.6 mmol/L (3.5-5.1); SODIUM 142 mmol/L (136-145)
[2018-05-12 06:51] LABS: CREATININE 1.3 mg/dL (0.55-1.3)
--- NOTE | 2018-05-12 09:06 | PN ---
Progress Note, Physician Chief Complaint: Seen and examined in no distress Denies chest pain Dizziness resolved. Echo showed mild aortic stenosis. History of Present Illness: BP trend overall improved. - Current Medication List Current Medications: Active Medications Atenolol (Tenormin -) [address] [facility] Dipyridamole/Aspirin (Aggrenox -) [address] [facility] Last Admin: 05/11/18 21:16 Dose: 1 combo Meclizine HCl (Antivert -) 12.[address] [facility] Last Admin: 05/11/18 21:16 Dose: 12.5 mg Mirtazapine (Remeron -) 15 mg PO [facility] Last Admin: 05/11/18 21:16 Dose: 15 mg Nifedipine (Procardia Xl -) [address] [facility] Last Admin: 05/11/18 09:11 Dose: 90 mg Rosuvastatin Calcium (Crestor -) 10 mg PO [facility] Last Admin: 05/11/18 21:16 Dose: 10 mg - Objective Vital Signs: Vital Signs Temperature 97.5 F L 05/12/18 08:38 Pulse Rate 71 05/12/18 08:38 Respiratory Rate 20 05/12/18 08:38 Blood Pressure 147/73 05/12/18 08:38 O2 Sat by Pulse Oximetry (%) 93 L 05/11/18 20:24 Constitutional: Yes: No Distress Cardiovascular: Yes: Regular Rate and Rhythm Respiratory: Yes: CTA Bilaterally Gastrointestinal: Yes: Soft Edema: No Neurological: Yes: Alert ...Motor Strength: WNL Labs: CBC, BMP 05/08/18 14:35 05/12/18 05:30 INR, PTT INR 1.01 (0.83-1.09) 05/08/18 14:35 Laboratory Tests 05/08/18 05/09/18 05/12/18 14:35 05:30 05:30 Sodium 142 Potassium 4.6 BUN 35 H Creatinine 1.3 Troponin I < 0.02 < 0.02 < 0.02 - ....Imaging EKG: Image Reviewed (Reviewed: NSR) Assessment/Plan IMP: Multiple prior TIAs, prior CVA Acute dizziness/ vertigo with MRI negative for acute CVA Abnl ECG: LVH diffuse NSST changes and TWI Mild aortic stenosis. REC: 1. BP trend is overall improved, would continue current Rx. 2. Await completion of stress MPI, further reccs to follow. 3. Continue Aggrenox. Continue Crestor at current dose, would avoid high dose in patients > 75. 4. Mild , yearly surveillance echo or if clinical change.
--- NOTE | 2018-05-12 09:25 | PN ---
Progress Note (short form) - Note Progress Note: Neurology History of Present Illness: 77 Y-O M with past history of TIAx2, hyperlipidemia, who was brought in for unsteady gait, confusion, listlessness. He began feeling ill approx 3 days prior to admission when he developed a generalized headache confusion that he compared to a "drunken state"; however, on day of admission, he noted that his gait was impaired in that he could not walk straight and staggering making him unbalanced falling or tilting to his left side. Patient's family reported catching the patient when upright to prevent a fall and became concerned. Slurring was observed. Denied fevers, chills, nausea, vomiting. Denied rhinorrhea, ear pain. Denied chest pain and shortness of breath. Denied abdominal pain and dysuria. His last CVA was approx 10 yrs ago with just tingling of his RUE. CT head completed in ER showed ? encephalomalacia of R inferior parietal region, could not rule out subdural. MRI brain offical report completed and without acute changes. Spoke to daughter in detail via phone yesterday and provided update. Answered all questions. Active Medications Atenolol (Tenormin -) 50 mg PO DAILY [facility] Dipyridamole/Aspirin (Aggrenox -) 1 combo PO BID [facility] Last Admin: 05/11/18 21:16 Dose: 1 combo Meclizine HCl (Antivert -) 12.5 mg PO BID [facility] Last Admin: 05/11/18 21:16 Dose: 12.5 mg Mirtazapine (Remeron -) 15 mg PO [facility] Last Admin: 05/11/18 21:16 Dose: 15 mg Nifedipine (Procardia Xl -) 90 mg PO DAILY [facility] Last Admin: 05/11/18 09:11 Dose: 90 mg Rosuvastatin Calcium (Crestor -) 10 mg PO [facility] Last Admin: 05/11/18 21:16 Dose: 10 mg Physical Examination Vital Signs Temperature 97.5 F L 05/12/18 08:38 Pulse Rate 71 05/12/18 08:38 Respiratory Rate 20 05/12/18 08:38 Blood Pressure 147/73 05/12/18 08:38 O2 Sat by Pulse Oximetry (%) 93 L 05/11/18 20:24 Constitutional: Yes: Well Nourished, No Distress Eyes: Yes: Conjunctiva Clear, EOM Intact HENT: Yes: WNL Neck: Yes: WNL Cardiovascular: Yes: Regular Rate and Rhythm Respiratory: Yes: WNL Gastrointestinal: Yes: Normal Bowel Sounds, Soft ...Rectal Exam: Yes: Deferred (to PCP) Musculoskeletal: Yes: WNL Extremities: Yes: WNL Edema: No Peripheral Pulses: Left Doralis Pedis: 1+, Right Dorsalis Pedis: 1+ Integumentary: Yes: WNL Neurological: Awake, alert, interactive, moves all extremities equally, sensory intact, gait deferred CBCD WBC 10.1 K/mm3 (4.0-10.0) H 05/08/18 14:35 RBC 5.45 M/mm3 (4.00-5.60) 05/08/18 14:35 Hgb 15.8 GM/dL (11.7-16.9) 05/08/18 14:35 Hct 47.2 % (35.4-49) 05/08/18 14:35 MCV 86.6 fl (80-96) 05/08/18 14:35 MCHC 33.4 g/dl (32.0-35.9) 05/08/18 14:35 RDW 14.0 % (11.9-15.9) 05/08/18 14:35 Plt Count 309 K/MM3 (134-434) 05/08/18 14:35 MPV 8.5 fl (7.5-11.1) 05/08/18 14:35 CMP Sodium 142 mmol/L (136-145) 05/12/18 05:30 Potassium 4.6 mmol/L (3.5-5.1) 05/12/18 05:30 Chloride 107 mmol/L (98-107) 05/12/18 05:30 Carbon Dioxide 25 mmol/L (21-32) 05/12/18 05:30 Anion Gap 10 MMOL/L (8-16) 05/12/18 05:30 BUN 35 mg/dL (7-18) H 05/12/18 05:30 Creatinine 1.3 mg/dL (0.55-1.3) 05/12/18 05:30 Creat Clearance w eGFR 53.67 (>60) 05/12/18 05:30 Random Glucose 97 mg/dL (74-106) 05/12/18 05:30 Calcium 9.0 mg/dL (8.5-10.1) 05/12/18 05:30 Total Bilirubin 0.2 mg/dL (0.2-1.0) 05/08/18 14:35 AST 15 U/L (15-37) 05/08/18 14:35 ALT 29 U/L (13-61) 05/08/18 14:35 Alkaline Phosphatase 88 U/L (45-117) 05/08/18 14:35 Total Protein 7.3 g/dl (6.4-8.2) 05/08/18 14:35 Albumin 3.7 g/dl (3.4-5.0) 05/08/18 14:35 CARDIAC ENZYMES Creatine Kinase 34 IU/L (26-308) 05/12/18 05:30 Troponin I < 0.02 ng/ml (0.00-0.05) 05/12/18 05:30 Imaging - Results Cat Scan: Report Reviewed MRI brain: Reviewed Plan 77 Y-O M with past history of TIAx2, hyperlipidemia, who was brought in for unsteady gait, confusion, listlessness. He began feeling ill approx 3 days prior to admission when he developed a generalized headache confusion that he compared to a "drunken state"; however, on day of admission, he noted that his gait was impaired in that he could not walk straight and staggering making him unbalanced falling or tilting to his left side. Patient's family reported catching the patient when upright to prevent a fall and became concerned. Slurring was observed. Denied fevers, chills, nausea, vomiting. Denied rhinorrhea, ear pain. Denied chest pain and shortness of breath. Denied abdominal pain and dysuria. His last CVA was approx 10 yrs ago with just tingling of his RUE. CT head completed in ER showed ? encephalomalacia of R inferior parietal region, could not rule out subdural. MRI brain completed, reviewed, no acute changes. Patient does feel better. Continue Aggrenox BID for now, only recently started one week ago. Monitor BP, maintain normotensive range , goal < 140/90. Continue statin for hyperlipidemia. PT/OT, assistive device as needed. Consider short term rehab if needed, fall precautions. Meclezine as needed for dizzyness. Fall precautions, DVT ppx.
[2018-05-12] MEDS: NIFEdipine E.R. 90 MG TABLET (FP) PO SCH (09:57)
[2018-05-12] MEDS: MECLIZINE HCL 12.5 MG TABLET PO SCH ×2 (09:58→21:34)
[2018-05-12] MEDS: ASPIRIN/DIPYRIDAMOLE 25 MG/200 MG CAPSULE (FP) PO SCH ×2 (09:59→21:34)
[2018-05-12] MEDS ORDERED: ATENOLOL 50 MG TABLET (FP) PO SCH (10:00)
[2018-05-12] MEDS ORDERED: REGADENOSON 0.4 MG/5 ML PRE-FILLED SYRINGE IVPUSH ONE ×2 (10:45→10:58)
--- NOTE | 2018-05-12 17:54 | PN ---
Progress Note (short form) - Note Progress Note: Current Medications Clonazepam (Klonopin -) 0.5 mg PO DAILY [facility] Dipyridamole/Aspirin (Aggrenox -) 1 combo PO BID [facility] Last Admin: 05/12/18 09:59 Dose: 1 combo Meclizine HCl (Antivert -) 12.5 mg PO BID [facility] Last Admin: 05/12/18 09:58 Dose: 12.5 mg Mirtazapine (Remeron -) 15 mg PO HS [facility] Last Admin: 05/11/18 21:16 Dose: 15 mg Nebivolol (Bystolic -) 5 mg PO DAILY [facility] Nifedipine (Procardia Xl -) 90 mg PO DAILY [facility] Last Admin: 05/12/18 09:57 Dose: 90 mg Rosuvastatin Calcium (Crestor -) 10 mg PO HS [facility] Last Admin: 05/11/18 21:16 Dose: 10 mg Laboratory Results - last 24 hr 05/12/18 05:30 Sodium 142 Potassium 4.6 Chloride 107 Carbon Dioxide 25 Anion Gap 10 BUN 35 H Creatinine 1.3 Creat Clearance w eGFR 53.67 Random Glucose 97 Calcium 9.0 Creatine Kinase 34 Troponin I < 0.02 Vital Signs Temperature 97.9 F 05/12/18 14:00 Pulse Rate 67 05/12/18 14:00 Respiratory Rate 20 05/12/18 09:00 Blood Pressure 159/76 05/12/18 14:00 O2 Sat by Pulse Oximetry (%) 96 05/12/18 09:00 CC: still does not feel "well"; denies CP ````````````````````````````````````` skin--good color eyes--midline oral--no droop evident lungs--clear heart--RR 2/6 M abd--benign neuro--ambulates on his own, no gross motor deficits appreciated `````````````````````````````````````````````` Summ > TIA/CVA--neurologically improved; cont BP control & Agrenoxx; MRI negative; carotid Duplex with some plaque but no signif narrowing. > dizziness--cause unclear; 2nd multiple factors > Htn--BP still fluctuates in PM; even with higher dose of the Atenolol; PLAN: change to Bystolic 5mg w/ the CCB. > renal insuff--US unremarkable; Bun/Cr stable > abnL EKG--lateral wall T wave inversions; Trop are WNL; without SX of CP; but stress test shows significant ischemic changes on nuclear component to co- incide with lateral wall EKG changes: PLAN: possible cardiac cath. > lipidemia--on crestor > anxiety-on mirtazapine; add Klonopin in AM ~~~~~~~~~~~~~~~~~~~~ dr Joe Problem List - Problems (1) TIA (transient ischemic attack) Code(s): G45.9 - TRANSIENT CEREBRAL ISCHEMIC ATTACK, UNSPECIFIED (2) Hypertension with renal disease Code(s): I12.9 - HYPERTENSIVE CHRONIC KIDNEY DISEASE W STG 1-4/UNSP CHR KDNY (3) Lipid disorder Code(s): E78.9 - DISORDER OF LIPOPROTEIN METABOLISM, UNSPECIFIED (4) Hx of traumatic brain injury Code(s): Z87.820 - PERSONAL HISTORY OF TRAUMATIC BRAIN INJURY (5) History of TIA (transient ischemic attack) Code(s): Z86.73 - PRSNL HX OF TIA (TIA), AND CEREB INFRC W/O RESID DEFICITS
[2018-05-12] MEDS: ROSUVASTATIN CA 10 MG TABLET (FP) PO SCH (21:34)
[2018-05-12] MEDS: MIRTAZAPINE 15 MG TABLET (FP) PO SCH (21:34)
[2018-05-13] MEDS ORDERED: clonazePAM 0.5 MG TABLET PO SCH ×2 (07:00)
[2018-05-13 07:23] LABS: CHLORIDE 108 mmol/L (98-107); POTASSIUM 4.9 mmol/L (3.5-5.1); SODIUM 142 mmol/L (136-145)
--- NOTE | 2018-05-13 08:22 | PN ---
Progress Note, Physician Chief Complaint: severe inferolateral ischemia EF 40s Discussed with PMD and with patient and daughter this AM - Current Medication List Current Medications: Active Medications Clonazepam (Klonopin -) 0.5 mg PO DAILY [facility] Last Admin: 05/13/18 06:26 Dose: 0.5 mg Dipyridamole/Aspirin (Aggrenox -) 1 combo PO BID [facility] Last Admin: 05/12/18 21:34 Dose: 1 combo Meclizine HCl (Antivert -) 12.5 mg PO BID [facility] Last Admin: 05/12/18 21:34 Dose: 12.5 mg Mirtazapine (Remeron -) 15 mg PO [facility] Last Admin: 05/12/18 21:34 Dose: 15 mg Nebivolol (Bystolic -) 5 mg PO DAILY [facility] Nifedipine (Procardia Xl -) 90 mg PO DAILY [facility] Last Admin: 05/12/18 09:57 Dose: 90 mg Rosuvastatin Calcium (Crestor -) 10 mg PO [facility] Last Admin: 05/12/18 21:34 Dose: 10 mg - Objective Vital Signs: Vital Signs Temperature 97.7 F 05/13/18 06:00 Pulse Rate 67 05/13/18 06:00 Respiratory Rate 18 05/13/18 06:00 Blood Pressure 147/72 05/13/18 06:00 O2 Sat by Pulse Oximetry (%) 97 05/12/18 21:00 Constitutional: Yes: Calm Cardiovascular: Yes: Regular Rate and Rhythm Respiratory: Yes: CTA Bilaterally Gastrointestinal: Yes: Soft Edema: No Neurological: Yes: Alert, Oriented ...Motor Strength: WNL Labs: CBC, BMP 05/08/18 14:35 INR, PTT INR 1.01 (0.83-1.09) 05/08/18 14:35 - ....Imaging EKG: Image Reviewed Assessment/Plan IMP: Multiple prior TIAs, prior CVA Acute dizziness/ possible vertigo with MRI negative for acute CVA Abnl ECG: LVH diffuse NSST changes and TWI Mild aortic stenosis. ?Dizziness secondary to coronary ischemia?- atypical presentation? Stress test with high risk findings. REC: 1. BP trend is overall improved, would continue current Rx. 2. Given high risk findings on stress test (severe ischemia, several territories , depressed LVEF) have recommended [facility] for definitive assessment of coronary anatomy. Risks/benefits/alternatives d/w patient and daughter. They have agreed to transfer for cath. 3. Continue Aggrenox. Continue Crestor at current dose, would avoid high dose in patients > 75. 4. Mild , yearly surveillance echo or if clinical change. May also need cath to explore severity of .
[2018-05-13] MEDS: NIFEdipine E.R. 90 MG TABLET (FP) PO SCH (09:01)
[2018-05-13] MEDS: ASPIRIN/DIPYRIDAMOLE 25 MG/200 MG CAPSULE (FP) PO SCH (09:01)
[2018-05-13] MEDS: MECLIZINE HCL 12.5 MG TABLET PO SCH (09:01)
[2018-05-13 09:18] LABS: BLOOD UREA NITROGEN 36 mg/dL (7-18); CREATININE 1.3 mg/dL (0.55-1.3)
--- NOTE | 2018-05-13 09:19 | PN ---
Progress Note (short form) - Note Progress Note: Neurology History of Present Illness: 77 Y-O M with past history of TIAx2, hyperlipidemia, who was brought in for unsteady gait, confusion, listlessness. He began feeling ill approx 3 days prior to admission when he developed a generalized headache confusion that he compared to a "drunken state"; however, on day of admission, he noted that his gait was impaired in that he could not walk straight and staggering making him unbalanced falling or tilting to his left side. Patient's family reported catching the patient when upright to prevent a fall and became concerned. Slurring was observed. Denied fevers, chills, nausea, vomiting. Denied rhinorrhea, ear pain. Denied chest pain and shortness of breath. Denied abdominal pain and dysuria. His last CVA was approx 10 yrs ago with just tingling of his RUE. CT head completed in ER showed ? encephalomalacia of R inferior parietal region, could not rule out subdural. MRI brain offical report completed and without acute changes. Spoke to daughter in detail at bedside today. Answered all questions., plan is for cardiac cath. Contacted by quality assurance representative and no objection to this. Active Medications Clonazepam (Klonopin -) 0.5 mg PO DAILY [facility] Last Admin: 05/13/18 06:26 Dose: 0.5 mg Dipyridamole/Aspirin (Aggrenox -) 1 combo PO BID [facility] Last Admin: 05/13/18 09:01 Dose: 1 combo Meclizine HCl (Antivert -) 12.5 mg PO BID [facility] Last Admin: 05/13/18 09:01 Dose: 12.5 mg Mirtazapine (Remeron -) 15 mg PO [facility] Last Admin: 05/12/18 21:34 Dose: 15 mg Nebivolol (Bystolic -) 5 mg PO DAILY [facility] Last Admin: 05/13/18 09:01 Dose: 5 mg Nifedipine (Procardia Xl -) 90 mg PO DAILY [facility] Last Admin: 05/13/18 09:01 Dose: 90 mg Rosuvastatin Calcium (Crestor -) 10 mg PO HS [facility] Last Admin: 05/12/18 21:34 Dose: 10 mg Physical Examination Vital Signs Period Temp Pulse Resp BP Sys/Bassett Pulse Ox Last 24 Hr 97.7 F-98.4 F 67-70 18-20 139-163/72- 97-99 Constitutional: Yes: Well Nourished, No Distress Eyes: Yes: Conjunctiva Clear, EOM Intact HENT: Yes: WNL Neck: Yes: WNL Cardiovascular: Yes: Regular Rate and Rhythm Respiratory: Yes: WNL Gastrointestinal: Yes: Normal Bowel Sounds, Soft ...Rectal Exam: Yes: Deferred (to PCP) Musculoskeletal: Yes: WNL Extremities: Yes: WNL Edema: No Peripheral Pulses: Left Doralis Pedis: 1+, Right Dorsalis Pedis: 1+ Integumentary: Yes: WNL Neurological: Awake, alert, interactive, moves all extremities equally, sensory intact, gait deferred Vital Signs Period Temp Pulse Resp BP Sys/Bassett Pulse Ox Last 24 Hr 97.7 F-98.4 F 67-70 18-20 139-163/72-83 97-99 Imaging - Results Cat Scan: Report Reviewed MRI brain: Reviewed Plan 77 Y-O M with past history of TIAx2, hyperlipidemia, who was brought in for unsteady gait, confusion, listlessness. He began feeling ill approx 3 days prior to admission when he developed a generalized headache confusion that he compared to a "drunken state"; however, on day of admission, he noted that his gait was impaired in that he could not walk straight and staggering making him unbalanced falling or tilting to his left side. Patient's family reported catching the patient when upright to prevent a fall and became concerned. Slurring was observed. Denied fevers, chills, nausea, vomiting. Denied rhinorrhea, ear pain. Denied chest pain and shortness of breath. Denied abdominal pain and dysuria. His last CVA was approx 10 yrs ago with just tingling of his RUE. CT head completed in ER showed ? encephalomalacia of R inferior parietal region, could not rule out subdural. MRI brain completed, reviewed, no acute changes. Patient does feel better. Continue Aggrenox BID for now, only recently started one week ago. Monitor BP, maintain normotensive range , goal < 140/90. Continue statin for hyperlipidemia. PT/OT, assistive device as needed. Meclezine as needed for dizzyness. No objection to transfer for cardiac cath. Fall precautions, DVT ppx.
[2018-05-13] MEDS ORDERED: NEBIVOLOL 5 MG TABLET (FP) PO SCH (10:00)
[2018-05-13 11:15] VITALS: BP 140/64; PULSE 72; TEMP 98.1
[2018-05-13 13:35] LABS: ANION GAP 10 MMOL/L (8-16); CO2 24 mmol/L (21-32); GLUCOSE,RANDOM 93 mg/dL (74-106)
== END 2018-05-13 12:22 | disposition short-term general hospital (02) | DRG 69 ==
LOC: JER 14:24 → JERBED 16:22 → J4W 19:45
PROVIDERS: ADMIT Internal Medicine; ATTEND Internal Medicine
DX: G45.9 Transient cerebral ischemic attack, unspecified (principal); I12.9 Hypertensive chronic kidney disease with stage 1 through stage 4 chronic kidney disease, or unspecified chronic kidney disease; Z87.820 Personal history of traumatic brain injury; Z86.73 Personal history of transient ischemic attack (TIA), and cerebral infarction without residual deficits; E78.5 Hyperlipidemia, unspecified; R26.81 Unsteadiness on feet; R42 Dizziness and giddiness; F41.9 Anxiety disorder, unspecified
CPT/HCPCS: 36415; 70450-TC; 70551-TC; 71045-TC-FY; 76775-TC; 78452-TC; 80048; 80053; 81003; 82465; 82550; 83718; 83721; 83735; 84439; 84443; 84478; 84484; 85025; 85610; 86618; 86850; 86900; 86901; 93005; 93010; 93017; 93306-TC; 93880-TC; 99284-25; A9502; J2785